=== PATIENT | female | born 1990 | race Caucasian/White ===

== ENCOUNTER 2024-12-25 19:38 | Emergency (ER) | payer BC, SELFPAY ==
--- NOTE | 2024-12-25 19:41 | ED.WOUNDLAC ---
HPI - Wound/Laceration General Chief Complaint: Wound/Laceration Stated Complaint: Right Hand Cut Time Seen by Provider: 12/25/24 19:45 Source: patient, RN notes reviewed and old records reviewed Mode of arrival: ambulatory Limitations: no limitations History of Present Illness HPI narrative: 34-year-old female presents to the [facility] with complaints of a laceration from a broken glass to the right palmar aspect of hand. Bleedings controlled Last tetanus was between 2021 or 2022 Patient tetanus UTD: Yes Related Data Home Medications ?Medication ?Instructions ?Recorded ?Confirmed ?Last Taken ?Type amlodipine 5 mg tablet 5 mg PO DAILY 03/07/20 03/13/21 Unknown History hydrochlorothiazide 25 mg tablet 25 mg PO DAILY 03/07/20 03/13/21 Unknown History Allergies Allergy/AdvReac Type Severity Reaction Status Date / Time No Known Allergies Allergy Verified 12/25/24 20:09 Review of Systems Review of Systems: All systems reviewed & are unremarkable except as noted in HPI and below Constitutional: Constitutional: Reports no additional constitutional complaints Musculoskeletal: Musculoskeletal: Reports no additional musculoskeletal complaints Integumentary/Breasts: Skin/Breast: Reports as per HPI and Reports wounds PMFSH Past Medical History Medical History Dysmenorrhea Hypertension Surgical History Surgical History No significant past surgical history Family History Family History Mother Diabetes mellitus Family history of malignant neoplasm of breast in first degree relative Grandparent Diabetes mellitus Family history of malignant neoplasm of cervix Family history of malignant neoplasm of ovary Social History Social History Smoking status: Never smoker Smoking end date: 06/13/08 Alcohol intake: current Substance use type: marijuana Comments At the time of my signature, I reviewed and agree with the nursing past medical, surgical, social, and family history. There is no relevant family history pertinent to the patient complaint. Exam Const: General: cooperative, healthy appearing, comfortable, no acute distress, well developed, alert and well nourished Nutritional Appearance: well nourished Orientation/consciousness: patient oriented x3 Limitations: no limitations HENMT: Head: normal to inspection Eyes: General: appearance normal, both eyes and all related structures Alignment and Position: alignment normal Neck: Neck: normal visual inspection, full ROM, no lymphadenopathy and no meningeal signs Chest: Chest palpation & inspection: normal inspection of the chest Resp: Effort & Inspection: normal respiratory effort and able to speak in complete sentences Cardio: Rate: regular rate Skin: General skin exam: normal color and no rashes or lesions noted Wounds: wounds noted laceration right palmar hand size (2) and margins well approximated; without any surrounding erythema Neuro: General: patient oriented x3, gait normal, moves all extremities and no meningeal signs Cognition (Neuro): normal cognition Speech: normal speech Gait exam (Neuro): Normal gait present Extrem: General: normal to inspection, full ROM, capillary refill normal and normal gait Right upper extremity: Extremity exam: right hand normal capillary refill, neuromotor exam normal wrist extension normal, thumb opposition normal, thumb IP flexion normal, thumb ADduction normal and fingers 2-5 ABduction normal, vascular exam radial pulse present and normal capillary refill, normal ROM of fingers and laceration palm linear and with sensation intact (But with tingling in fingers 3 4 in 5); not contaminated; no tenderness, no swelling and no foreign bodies Psych: Appearance: grossly normal and well kempt Mental Status: mental status grossly normal Speech and movement: Normal speech and movement present and Clear speech present Affect: normal affect Attitude: cooperative Course Course Level of Care: Express Care Visit Vital Signs Vital signs: Vital Signs Temperature 98.0 F 12/25/24 19:45 Pulse Rate 107 H 12/25/24 19:45 Respiratory Rate 12/25/24 19:45 Blood Pressure 139/100 H 12/25/24 19:45 Pulse Oximetry 98 12/25/24 19:45 Oxygen Delivery Room Air 12/25/24 19:45 Temperature 98.0 F 12/25/24 19:45 Pulse Rate 107 H 12/25/24 19:45 Respiratory Rate 12/25/24 19:45 Blood Pressure 139/100 H 12/25/24 19:45 Pulse Oximetry 98 12/25/24 19:45 Oxygen Delivery Room Air 12/25/24 19:45 Reviewed Procedures Laceration Laceration 1: Date: 12/25/24 Time: 20:00 Site: hand Side (If applicable): right Size (cm): 2 Description: linear Depth: simple, single layer Local Anesthetic: lidocaine 1% Amount of anesthesia used (mL): 5 Pre-repair: wound explored and irrigated (250) ====== Skin Level ====== Skin layer closed with: nylon Size (cm): 5-0 Number of sutures: 4 Technique: simple, interrupted ====== Subcutaneous Layer ====== ====== Muscle Layer ====== ====== Tendon Layer ====== Dressing: Area cleaned. Procedure explained to patient, verbal consent obtained. Area irrigated with 250 mils of saline. Three injections of lidocaine done with a total of 5 mils of lidocaine, anesthesia achieved. Four sutures placed without issue. Patient tolerated procedure well. Discussed care of wound. MDM - Wound/Laceration MDM Narrative Medical decision making narrative: Patient sitting in exam room. Patient is nontoxic, patient presents with laceration to the palmar aspect right hand, cut it on a broken bowl. Bleeding is controlled. Full range of motion of the fingers. Sensation intact but does reports some tingling in fingers 3 4 and 5. No foreign bodies, irrigation done. Four sutures placed without issue. Patient tolerated well Discharge instructions reviewed with patient, as well as provided in writing per nursing staff. The instructions also include specific and strict return/GO TO THE ER as well as f/u information. All questions have been answered, and the patient deny any further questions with discharge and discharge plan. Some parts of this dictation were generated by voice recognition software and may contain typographical and/or grammatical inaccuracies. Critical Care Time Critical Care Time Critical Care Time: No Discharge Plan Discharge Clinical Impression: Hand laceration Patient Disposition: Home Condition: Stable Instructions: Care For Your Stitches (DC), Laceration (DC) Additional Instructions: Keep area clean and dry. Wash with warm soapy water 2 to 3 times a day, pat dry. When not at home keep a dressing over the wound. When at home try leaving open to air for minimum of 4 hours per day. Follow-up with primary care provider in 10-14 days to have the sutures removed Patient Language: Icelandic Prescriptions: No Action amlodipine 5 mg tablet 5 mg PO DAILY hydrochlorothiazide 25 mg tablet 25 mg PO DAILY norethindrone-e.estradiol-iron 1 mg-20 mcg (24)/75 mg (4) tablet 1 tablet PO DAILY Qty: 4 0RF Rx Instructions: for continuous use Follow-up/Referrals: PHYSICIAN,SHADE BANDER [Primary Care Provider] - Time of Disposition: 20:15
[2024-12-25 19:45] VITALS: BP 139/100; PULSE 107; RESP 20; TEMP 36.7; O2SAT 98
[2024-12-25] MEDS: LIDOCAINE 1% LOCAL INJ 2 ML AMPUL 6 ML INFILTRATE (19:57)
== END 2024-12-25 20:20 | disposition home or self-care (01) ==
PROVIDERS: Emergency Provider Nurse Practitioner
DX: S61.411A Laceration without foreign body of right hand, initial encounter (principal); W25.XXXA Contact with sharp glass, initial encounter; Z87.891 Personal history of nicotine dependence; F12.90 Cannabis use, unspecified, uncomplicated; I10 Essential (primary) hypertension
CPT/HCPCS: 12001; 99212; G0463; J2003

== ENCOUNTER 2025-01-07 15:23 | Emergency (ER) | payer BC, SELFPAY ==
[2025-01-07 15:29] VITALS: BP 131/72; PULSE 96; RESP 18; TEMP 36.9; O2SAT 100
--- NOTE | 2025-01-07 15:40 | ED_ITS ---
HPI - Wound/Laceration General Chief Complaint: Wound/Laceration Stated Complaint: Stitches Removal Time Seen by Provider: 01/07/25 15:25 Source: patient and RN notes reviewed Mode of arrival: ambulatory Limitations: no limitations History of Present Illness HPI narrative: 34-year-old female presents Express Care complaining of suture removal. Patient's sutures placed proximally 13 days ago. She denies any concern for infection. Patient continues to complain of tingling to her 5th and 4th finger of her right hand. Patient says she is able to use her right hand is normally. Related Data Home Medications ?Medication ?Instructions ?Recorded ?Confirmed ?Last Taken ?Type amlodipine 5 mg tablet 5 mg PO DAILY 03/07/20 03/13/21 Unknown History hydrochlorothiazide 25 mg tablet 25 mg PO DAILY 03/07/20 03/13/21 Unknown History Allergies Allergy/AdvReac Type Severity Reaction Status Date / Time No Known Allergies Allergy Verified 01/07/25 15:26 Review of Systems Review of Systems: CONSTITUTIONAL: Denies fever, chills, or sweats. EYES: Denies visual changes, redness, or discharge. ENT: Denies rhinorrhea, congestion, sore throat, or otalgia. CARDIOVASCULAR: Denies chest pain, palpitations, or edema. RESPIRATORY: Denies cough or dyspnea. GASTROINTESTINAL: Denies abdominal pain, nausea, vomiting, or diarrhea. GENITOURINARY: Denies dysuria or hematuria. SKIN: Denies rash or itching. Positive for laceration. MUSCULOSKELETAL: Denies back pain, joint pain, or myalgia. NEUROLOGIC: Denies headache, numbness, or weakness. Positive for tingling PSYCHIATRIC: Denies anxiety or depression. All other systems reviewed are negative, except as documented in HPI. FORMERLY [facility], [facility]–1983 Past Medical History Medical History Dysmenorrhea Hypertension Surgical History Surgical History No significant past surgical history Family History Family History Mother Diabetes mellitus Family history of malignant neoplasm of breast in first degree relative Grandparent Diabetes mellitus Family history of malignant neoplasm of cervix Family history of malignant neoplasm of ovary Social History Social History Smoking status: Never smoker Smoking end date: 06/13/08 Alcohol intake: current Substance use type: marijuana Comments At the time of my signature, I reviewed and agree with the nursing past medical, surgical, social, and family history. There is no relevant family history pertinent to the patient complaint. Exam Narrative: GENERAL: This is a well-nourished, well-developed adult, in no apparent distress. They are non ill-appearing, nontoxic appearing. HEAD: normocephalic, atraumatic. EYES: Sclera clear/white. Conjunctiva normal. Vision is grossly intact. Extraocular movements intact EARS: External ears normal, Hearing grossly intact. NOSE: External nose normal THROAT: Mucous membranes moist, NECK: Neck supple, CARDIOVASCULAR: Regular rate and rhythm RESPIRATORY: Respiratory rate normal, respiratory effort nonlabored, no respiratory distress SKIN: Laceration present to lateral palmar hand with sutures present. No redness, swelling, exudate, pain. NEURO: awake, alert, and oriented to person, place and time. There were no obvious focal neurologic abnormalities. EXTREMITIES: No joint tenderness, effusion, or edema noted. Fourth and 5th right fingers: No obvious deformity, redness, swelling, pain, or bruising. Patient is able to flex and extend against resistance at the DIP, PIP, and MCP joints. Patient is able to wiggle her fingers. Patient is able to feel me touch her fingers. Capillary refill less than 2 seconds. Neurovascular status intact distal to laceration. Course Course Emergency Course: Portions of this record may have been created with voice recognition software Level of Care: Express Care Visit Vital Signs Vital signs: Vital Signs Temperature 98.4 F 01/07/25 15:29 Pulse Rate 96 01/07/25 15:29 Respiratory Rate 18 01/07/25 15:29 Blood Pressure 131/72 01/07/25 15:29 Pulse Oximetry 100 01/07/25 15:29 Oxygen Delivery Room Air 01/07/25 15:29 Temperature 98.4 F 01/07/25 15: Pulse Rate 96 01/07/25 15:29 Respiratory Rate 18 01/07/25 15:29 Blood Pressure 131/72 01/07/25 15:29 Pulse Oximetry 100 07/28/25 15:29 Oxygen Delivery Room Air 01/07/25 15:29 Reviewed MDM - Wound/Laceration MDM Narrative Medical decision making narrative: Successful laceration removal of 4 sutures. Neurovascular status intact distal to injury. She reports tingling to her 4th and 5th right digits. Normal function to 4th and 5th digits. Will refer patient to hand specialist to further assess the tingling sensation. No evidence of infection to wound. Discussed physical exam findings. Advised supportive measures and signs/symptoms to go to the ER. Pt is appropriate for outpt treatment and f/u. Differential Diagnosis Differential diagnosis: Likely laceration, abrasion and other (Nerve injury, cellulitis) Critical Care Time Critical Care Time Critical Care Time: No Discharge Plan Discharge Clinical Impression: Encounter for removal of sutures, Paresthesia of finger Patient Disposition: Home Condition: Stable Instructions: Acute Wounds (ED) Additional Instructions: Continue to wash the wound daily with soap water. Follow-up with Dr. Zhu for further evaluation of her your tingling to her fingers. Follow-up PCP in 3- 5 days. Look for signs of infection to the wound such as redness, swelling, pain, fevers, body aches, chills, nausea, vomiting, or any serious concerns please go to the ER immediately. Patient Language: Occitan Prescriptions: No Action amlodipine 5 mg tablet 5 mg PO DAILY hydrochlorothiazide 25 mg tablet 25 mg PO DAILY norethindrone-e.estradiol-iron 1 mg-20 mcg (24)/75 mg (4) tablet 1 tablet PO DAILY Qty: 4 0RF Rx Instructions: for continuous use Follow-up/Referrals: Terrie Zhu MD [Physician] - (finger tingling following a laceration to hand) PHYSICIAN,[employer] [Primary Care Provider] - Time of Disposition: 15:40
== END 2025-01-07 15:44 | disposition home or self-care (01) ==
DX: Z48.02 Encounter for removal of sutures (principal); R20.2 Paresthesia of skin; Z87.891 Personal history of nicotine dependence; I10 Essential (primary) hypertension
CPT/HCPCS: 99211; G0463